=== PATIENT | male | born 1980 | race Caucasian/White ===

== ENCOUNTER → 2020-04-30 | Outpatient (CLI) | payer BC, SELFPAY ==
[2020-04-30 09:13] VITALS: BMI 28.2
== END | disposition home or self-care (01) ==
PROVIDERS: Visit Provider Physician Assistant
DX: U07.1 COVID-19 (principal)
CPT/HCPCS: 87635; U0003

== ENCOUNTER 2020-10-21 14:51 | Emergency (ER) | payer BC, SELFPAY ==
[2020-10-17 11:38] VITALS: BMI 28.2
[2020-10-21 14:53] VITALS: BP 127/78; PULSE 75; RESP 18; TEMP 36.7; O2SAT 98; BMI 26.9
--- NOTE | 2020-10-21 15:07 | EDS_ITS ---
HPI History of Present Illness Chief Complaint: Edema Informant: patient Onset/Context/Timing Onset: Days Context: Gradual Onset Current Severity: Mild Maximum Severity: Mild Narrative Narrative: Patient present secondary to erythema and warmth on the medial aspect of the right mid arm. Patient was admitted to the hospital 6 days ago with a seizure. He had an IV in the right AC. Shortly after discharge 4 days ago he noted erythema and soreness along the medial aspect of the right elbow. No fever or chills. PFSH PFSH Medical History Seizure Home Medications omeprazole magnesium 20 mg tablet,delayed release 20 mg PO DAILY 04/30/20 [History Last Taken Unknown] doxycycline monohydrate 100 mg PO BID #20 cap 10/21/20 [Rx Last Taken Unknown] Allergy/AdvReac Type Severity Reaction Status Date / Time cat dander Allergy UNKNOWN Verified 10/21/20 14:55 house dust Allergy UNKNOWN Verified 10/21/20 14:55 Family History Other Cancer Surgical History H/O arthroscopy of knee Social History Smoking Status: Current every day smoker alcohol intake: never ROS ROS ED Constitutional Constitutional ED: Denies chills or fever(s) Eyes Eyes: Denies change in vision ENT ENT ED: Denies sore throat Cardiovascular Cardiovascular: Denies chest pain Respiratory/Chest Respiratory/Chest: Denies cough or dyspnea Gastrointestinal Gastrointestinal: Denies abdominal pain, diarrhea, nausea or vomiting Genitourinary Genitourinary ED: Denies dysuria Musculoskeletal Musculoskeletal: Reports arthralgias; Denies back pain Integumentary Reports other Details: Erythema right arm Neurologic Neurologic: Denies headache(s) or weakness Psychiatric Psychiatric: Denies anxiety or depression Endocrine Endocrinology: Denies polydipsia or polyuria Allergic/Immunologic Allergic/Immunologic ED: Denies urticaria EXAM Physical Exam Const Vital Signs: 10/21/20 14:53 Temperature 98.0 F Temperature Source Temporal Pulse Rate 75 Respiratory Rate 18 Blood Pressure 127/78 H Blood Pressure Mean 94 Pulse Ox 98 Oxygen Delivery Method Room Air Positive well nourished and well developed General Appearance ED: well developed HEENT Reports normocephalic and head/scalp atraumatic Eyes PERRL and EOMs intact bilaterally Neck supple Chest Wall inspection of chest normal and palpation of chest normal Resp normal respiratory effort and clear to auscultation bilaterally Cardio regular rate and regular rhythm GI normal to inspection, nondistended, normoactive bowel sounds Palpation: soft Extremity Extremity Narrative: Very pale erythema along the medial aspect of the right elbow to include distal upper arm and proximal forearm. No palpable cords appre ciated. Full range of motion with no joint involvement. Neuro oriented x3 and no sensory deficits noted Sensorium / Orientation: alert Motor Exam: strength 5/5 throughout Psych mental status grossly normal MDM MDM Treatment and Re-Evaluation Comments:: Patient raises concern for possible skin infection or blood clot. My suspicion on this is low I cannot completely rule this out. Patient will be treated with antibiotic for early cellulitis. He will return tomorrow for an upper extremity DVT study. He is comfortable with this plan. I will refer him to jose l Tee on no doc list for follow-up. Discharge Plan Triage Chief Complaint: Edema ED Provider: Lillian Masters Dx/Rx/DC Orders Clinical Impression: Cellulitis Instructions: ED Cellulitis Prescriptions: New doxycycline monohydrate 100 MG capsule 100 mg PO BID Qty: 20 RF: 0 No Action omeprazole magnesium [Prilosec OTC] 20 mg tablet,delayed release (DR/EC) 20 mg PO DAILY RF: 0 Other Ambulatory Orders: Venous Duplex US, Unilateral (Routine) Facility: [facility] - Location: [facility] Ordered By: Dr. Lillian Masters Primary Care Provider: Care Physician,No Primary Referrals: David Gatson III, MD [STAFF PHYSICIAN] - As Needed Care Physician,No Primary [Primary Care Provider] - Disposition Disposition: Home, self care
[2020-10-21] MEDS: Doxycycline 100 MG CAPSULE PO (15:27)
== END 2020-10-21 15:31 | disposition home or self-care (01) ==
PROVIDERS: Emergency Provider Emergency Medicine
DX: R60.9 Edema, unspecified (principal); R56.9 Unspecified convulsions; F17.200 Nicotine dependence, unspecified, uncomplicated
CPT/HCPCS: 99283

== ENCOUNTER → 2020-10-24 15:10 | Outpatient (CLI) | payer BC, SELFPAY ==
[2020-10-21 14:53] VITALS: BMI 26.9
== END ==
PROVIDERS: Referring Provider Emergency Medicine; Visit Provider Emergency Medicine
DX: M79.601 Pain in right arm (principal)
CPT/HCPCS: 93971

== ENCOUNTER 2020-10-24 15:47 | Emergency (ER) | payer BC, SELFPAY ==
[2020-10-24 15:49] VITALS: BP 127/76; PULSE 62; RESP 15; TEMP 36.3; O2SAT 97; BMI 28.2
--- NOTE | 2020-10-24 16:02 | EX.ED.DYSGE1 ---
HPI History of Present Illness Chief Complaint: Other, Pain/Inj Informant: patient Onset/Context/Timing Onset: Days Context: Gradual Onset Current Severity: Mild Maximum Severity: Moderate Narrative Narrative: Patient presents back to the emergency room for right upper extremity DVT. Patient was seen over the weekend by myself with pain and swelling in the right arm along with mild redness. He was placed on antibiotics and given an order to come in for outpatient ultrasound of his arm. I was called by cardiovascular lab noting the patient had both superficial and deep clot in the right arm. He does not have a primary care physician so was sent to the emergency room for evaluation. [facility] Medical History Seizure Home Medications omeprazole magnesium 20 mg tablet,delayed release 20 mg PO DAILY 04/30/20 [History Last Taken Unknown] doxycycline monohydrate 100 mg PO BID #20 cap 10/21/20 [Rx Last Taken Unknown] apixaban [Eliquis] 5 mg PO BID #74 tab 10/24/20 [Rx Last Taken Unknown] Allergy/AdvReac Type Severity Reaction Status Date / Time cat dander Allergy UNKNOWN Verified 10/21/20 14:55 house dust Allergy UNKNOWN Verified 10/21/20 14:55 Family History Other Cancer Surgical History H/O arthroscopy of knee Social History Smoking Status: Current every day smoker alcohol intake: never ROS ROS ED Constitutional Constitutional ED: Denies chills or fever(s) Eyes Eyes: Denies change in vision ENT ENT ED: Denies sore throat Cardiovascular Cardiovascular: Denies chest pain Respiratory/Chest Respiratory/Chest: Denies cough or dyspnea Gastrointestinal Gastrointestinal: Denies abdominal pain, diarrhea, nausea or vomiting Genitourinary Genitourinary ED: Denies dysuria Musculoskeletal Musculoskeletal: Reports arthralgias; Denies back pain Integumentary Denies rash Neurologic Neurologic: Denies headache(s) or weakness Psychiatric Psychiatric: Denies anxiety or depression Endocrine Endocrinology: Denies polydipsia or polyuria Allergic/Immunologic Allergic/Immunologic ED: Denies urticaria EXAM Physical Exam Const Vital Signs: 10/24/20 15:49 Temperature 97.3 F L Temperature Source Temporal Pulse Rate 62 Respiratory Rate 15 Blood Pressure 127/76 H Blood Pressure Mean 93 Pulse Ox 97 Oxygen Delivery Method Room Air Positive well nourished and well developed General Appearance ED: well developed HEENT Reports normocephalic and head/scalp atraumatic Eyes PERRL and EOMs intact bilaterally Neck supple Chest Wall inspection of chest normal and palpation of chest normal Resp normal respiratory effort and clear to auscultation bilaterally Cardio regular rate and regular rhythm GI normal to inspection, nondistended, normoactive bowel sounds Palpation: soft Extremity normal to inspection Extremity Narrative: Mild edema on the medial portion of the right upper arm. Erythema that was present a few days ago was improved. Strong distal pulses. Full range of motion. Neuro oriented x3 and no sensory deficits noted Sensorium / Orientation: alert Motor Exam: strength 5/5 throughout Psych mental status grossly normal Skin no rashes or lesions noted [facility] Treatment and Re-Evaluation Comments:: Right upper extremity scan with superficial clot in the right basilic vein. This clot is extending into the brachial vein. There is an acute superficial vein in the median cubital vein but not extending into the cephalic. Patient will be started on Eliquis. He is given a 30-day trial offer coupon. He will be referred to [facility] internal medicine who he wishes to establish care with. Discharge Plan Triage Chief Complaint: Other, Pain/Inj ED Provider: Lillian Masters Dx/Rx/DC Orders Clinical Impression: Acute deep vein thrombosis of upper extremity Instructions: Deep Vein Thrombosis Prescriptions: New Eliquis 5 mg tablet 5 mg PO BID Qty: 74 RF: 0 No Action omeprazole magnesium [Prilosec OTC] 20 mg tablet,delayed release (DR/EC) 20 mg PO DAILY RF: 0 doxycycline monohydrate 100 MG capsule 100 mg PO BID Qty: 20 RF: 0 Primary Care Provider: Care Physician,No Primary Referrals: Adolfo Epperson MD [NON-STAFF] - As soon as possible Care Physician,No Primary [Primary Care Provider] - Disposition Disposition: Home, self care
[2020-10-24] MEDS: APIXABAN 5 MG TABLET 10 MG PO (16:30)
== END 2020-10-24 16:34 | disposition home or self-care (01) ==
PROVIDERS: Emergency Provider Emergency Medicine
DX: I82.621 Acute embolism and thrombosis of deep veins of right upper extremity (principal); M79.89 Other specified soft tissue disorders; R56.9 Unspecified convulsions; F17.200 Nicotine dependence, unspecified, uncomplicated; Z79.01 Long term (current) use of anticoagulants; Z79.899 Other long term (current) drug therapy
CPT/HCPCS: 99283

== ENCOUNTER → 2021-02-04 08:17 | Outpatient (CLI) | payer BC, SELFPAY ==
[2021-02-04 08:20] LABS: Bacteria 0 SEEN /hpf (None Seen); Red Blood Cells-Urine 0 SEEN /hpf (0-5); Squamous Epithelial Cells - UA 0 SEEN /hpf (0-5); White Blood Cells 0 SEEN /hpf (0-5)
[2021-02-04 10:15] LABS: Absolute Lymphocyte Count 1.57 X10^3/uL (0.83-4.51); Absolute Neutrophil Count 2.9 X10^3/uL (2.0-7.7); Basophil# 0.05 X10^3/uL; Eosinophil# 0.16 X10^3/uL; Eosinophils% 3.2 % (0-5); Hematocrit 44.2 % (40-54); Hemoglobin 14.8 g/dL (13.0-16.5); Lymphocyte # 1.57 X10^3/ul (0.83-4.51); Lymphocyte % 31.4 % (19-41); Mean Corp Hgb Conc 33.5 g/dL (32-36); Mean Corpuscular Hgb 28.2 pg (27.0-32.0); Mean Corpuscular Volume 84.2 fL (80-94); Mean Platelet Vol. 9.9 fl (6.2-12.0); Monocyte# 0.35 X10^3/uL; NRBC Flagged by Analyzer 0 % (0-5); Neutrophil # 2.85 X10^3/uL (2.7-7.7); Platelet Count 273 K/mm3 (150-450); RBC Distribution Width CV 12.9 % (11.6-14.6); RBC Distribution Width SD 39.5 fl (35.1-43.9); Red Blood Count 5.25 M/mm3 (4.6-6.2)
[2021-02-04 10:17] LABS: Color, Urine Yellow (Yellow); Glucose, Dipstick Normal (Normal); Ketone-Dipstick Negative (Negative); Leukocyte Esterase-Dipstick Negative /ul (Negative); Nitrite-Dipstick Negative (Negative); Occult Blood-Urine Negative /ul (Negative); Protein-Dipstick Negative (Negative); Specific Gravity, Urine 1.025 (1.002-1.030); Urine Bilirubin Dipstick Negative (Negative); Urine Clarity Clear (Clear); Urine Urobilinogen Normal (Normal)
[2021-02-04 10:25] LABS: Mucous, Urine RARE /hpf (<or=2+)
[2021-02-04 10:50] LABS: Vitamin B12 379 pg/mL (211-911)
[2021-02-04 10:58] LABS: ALB/GLOB Ratio 1.1 RATIO (0.9-2.4); AST(SGOT) 15 U/L (15-37); Alanine Aminotransfer ALT/SGPT 29 U/L (16-61); Albumin, Serum 3.7 g/dL (3.2-5.0); Alkaline Phosphatase 69 U/L (45-117); Anion Gap 4 (5-15); BUN 14 mg/dL (7-18); BUN/Creat Ratio 16.5 RATIO (10-20); Calcium,Total 8.8 mg/dL (8.5-10.1); Chloride 110 mmol/L (98-107); Creatinine, Serum 0.85 mg/dL (0.70-1.30); EST Glomerular Filtration Rate 106 mL/min (>60); Est Glom Filt Rate - Afr Amer 128 mL/min (>60); Globulin 3.4 g/dL (2.2-4.2); Glucose 88 mg/dL (74-106); Protein, Total 7.1 g/dL (6.4-8.2); Sodium Level 140 mmol/L (136-145); T4 Free Direct 0.85 ng/dL (0.76-1.46); Thyroid Stim Hormone (TSH) 0.83 uIU/mL (0.358-3.74)
[2021-02-06 13:12] LABS: KEPPRA (LEVETIRACETAM) 6.4 ug/mL (10.0-40.0)
== END ==
PROVIDERS: Psychiatry & Neurology Neurology; Visit Provider Family Medicine
DX: E04.1 Nontoxic single thyroid nodule (principal); R41.3 Other amnesia; G40.909 Epilepsy, unspecified, not intractable, without status epilepticus; Z72.0 Tobacco use
CPT/HCPCS: 36415; 80053; 80177; 81001; 82140; 82607; 84439; 84443; 85025

== ENCOUNTER → 2021-02-07 08:09 | Outpatient (CLI) | payer BC, SELFPAY ==
--- NOTE | 2021-02-07 08:12 | US_ITS ---
INDICATION: NODULE EXAMINATION: Ultrasound US Thyroid (eg thyroid, parathyroid, parotid) TECHNIQUE: Vincent scale and color doppler imaging was performed of the thyroid gland. COMPARISON: None. FINDINGS: RIGHT THYROID LOBE: The right lobe of the thyroid gland is of normal size and demonstrates unremarkable homogeneous echogenicity, unremarkable vascularity. Unremarkable size, shape and configuration. No evidence of thyroid nodules are seen. The right lobe of the thyroid gland measures 4.5 x 1.8 x 1.4 cm. LEFT THYROID LOBE: The left lobe of the thyroid gland is of normal size and demonstrates unremarkable homogeneous echogenicity, unremarkable vascularity. Unremarkable size, shape and configuration. No evidence of thyroid nodules are seen. The left lobe of the thyroid gland measures 4.5 x 1.8 x 1.4 cm. ISTHMUS: The isthmus demonstrates unremarkable echogenicity and vascularity. No thyroid nodules are present. The isthmus measures 0.3 cm in AP diameter. US/Thyroid IMPRESSION: Unremarkable thyroid ultrasound examination. Electronically Signed: Missael Iglesias MD at 9:46 EDT Tel , Service support ,
== END ==
PROVIDERS: Referring Provider Family Medicine; Visit Provider Family Medicine
DX: E04.1 Nontoxic single thyroid nodule (principal)
CPT/HCPCS: 76536

== ENCOUNTER → 2021-04-22 08:06 | Outpatient (CLI) | payer BC, SELFPAY ==
[2021-04-29 13:29] LABS: KEPPRA (LEVETIRACETAM) 8.2 ug/mL (10.0-40.0)
== END ==
PROVIDERS: PCP Family Medicine; Referring Provider Family Medicine; Visit Provider Psychiatry & Neurology Neurology
DX: G40.909 Epilepsy, unspecified, not intractable, without status epilepticus (principal)
CPT/HCPCS: 36415; 80177; 82140

== ENCOUNTER 2021-06-21 08:03 | Outpatient (CLI) | payer BC, SELFPAY ==
[2021-06-28 13:49] LABS: KEPPRA (LEVETIRACETAM) 11.7 ug/mL (10.0-40.0)
== END 2021-06-21 23:59 | disposition short-term general hospital (02) ==
LOC: MFPLAB 08:05
PROVIDERS: PCP Family Medicine; Referring Provider Family Medicine; Visit Provider Psychiatry & Neurology Neurology
DX: G40.309 Generalized idiopathic epilepsy and epileptic syndromes, not intractable, without status epilepticus (principal)
CPT/HCPCS: 36415; 80177

== ENCOUNTER → 2022-03-05 | Outpatient (CLI) | payer BC, SELFPAY ==
[2022-03-09 09:07] LABS: KEPPRA (LEVETIRACETAM) 15.3 ug/mL (10.0-40.0)
== END | disposition home or self-care (01) ==
LOC: MFPLAB 08:03
PROVIDERS: PCP Family Medicine; Referring Provider Family Medicine; Visit Provider Psychiatry & Neurology Neurology
DX: G40.309 Generalized idiopathic epilepsy and epileptic syndromes, not intractable, without status epilepticus (principal)
CPT/HCPCS: 36415; 80177; 82140

== ENCOUNTER → 2023-05-29 | Outpatient (CLI) | payer BC, SELFPAY | END | disposition home or self-care (01) | LOC: MFPLAB 09:30 | PROVIDERS: PCP Family Medicine; Visit Provider Psychiatry & Neurology Neurology | DX: G40.309 Generalized idiopathic epilepsy and epileptic syndromes, not intractable, without status epilepticus (principal) | CPT/HCPCS: 36415; 80177; 82140 ==

== ENCOUNTER → 2024-11-03 | Outpatient (CLI) | payer BC, SELFPAY ==
[2024-11-03 11:01] LABS: Ammonia 15.1 umol/L (16-60)
[2024-11-07 05:06] LABS: KEPPRA (LEVETIRACETAM) 12.8 ug/mL (10.0-40.0)
== END | disposition home or self-care (01) ==
LOC: MFPLAB 08:23
PROVIDERS: PCP Family Medicine; Visit Provider Psychiatry & Neurology Neurology
DX: G40.909 Epilepsy, unspecified, not intractable, without status epilepticus (principal)
CPT/HCPCS: 36415; 80177; 82140